=== PATIENT | female | born 1960 | race Caucasian/White ===

== ENCOUNTER 2024-03-26 21:45 | Inpatient (IN) | payer MEDICARE, OTHER ==
[~2024-03-26] VITALS: Ht 162.6 cm; Wt 59.0 kg
[2024-03-26] MEDS ORDERED: OLANZAPINE 10 MG VIAL IM ONE (22:27)
[2024-03-26] MEDS ORDERED: LORAZEPAM INJ 2 MG/ML VIAL ONE (22:28)
[2024-03-26 22:30] LABS: EOSINOPHILS # (AUTO) 0.1 K/uL (0.0-0.7); LYMPHOCYTES # (AUTO) 1.2 K/uL (0.8-4.8); LYMPHOCYTES % (AUTO) 19.5 % (20.0-44.0); MEAN CORPUSCULAR VOLUME 89 fL (82-100); MONOCYTES # (AUTO) 0.4 K/uL (0.1-1.30)
[2024-03-26] MEDS: OLANZAPINE 10 MG VIAL IM ONE (22:34)
[2024-03-26] MEDS: LORAZEPAM INJ 2 MG/ML VIAL IM ONE (22:34)
[2024-03-26 22:35] LABS: BASOPHILS % (AUTO) 0.8 % (0.0-2.0); EOSINOPHILS % (AUTO) 1.5 % (0.0-6.0); HEMATOCRIT 46 % (33-45); MEAN CORPUSCULAR HEMOGLOBIN 31 PG (26.0-33.0); MEAN CORPUSCULAR HGB CONC 35 g/dl (31.0-36.0); MONOCYTES % (AUTO) 6.6 % (2.0-12.0); NEUTROPHILS # (AUTO) 4.4 K/uL (1.8-8.9); NEUTROPHILS % (AUTO) 71.6 % (43.0-81.0); PLATELET COUNT (AUTO) 102 K/uL (150-450); RED BLOOD CELL COUNT(AUTO) 5.17 MIL/uL (4.0-5.2); RED CELL DISTRIBUTION WIDTH 13.1 % (11.5-15.0); WHITE BLOOD COUNT (AUTO) 6.2 K/uL (4.3-11.0)
[2024-03-26 22:36] VITALS: O2SAT 98
[2024-03-26 22:36] LABS: ALANINE AMINOTRANSFERASE 40 U/L (12-78); ALKALINE PHOSPHATASE 113 U/L (46-116); ASPARTATE AMINOTRANSFERASE 17 U/L (15-37); BILIRUBIN,DIRECT 0.2 mg/dL (0.0-0.2); BILIRUBIN,TOTAL 0.9 mg/dL (0.2-1.0); CALCIUM, SERUM 8.6 mg/dL (8.5-10.1); CARBON DIOXIDE 24 mmol/L (21-32); CHLORIDE 109 mmol/L (98-107); CREATININE 0.8 mg/dL (0.6-1.3); GLUCOSE 115 mg/dL (74-106); POTASSIUM 3.5 mmol/L (3.5-5.1); SODIUM SERUM 143 mmol/L (136-145); TOTAL PROTEIN, SERUM 7.2 g/dL (6.4-8.2); UREA NITROGEN, BLOOD 17 mg/dL (7-18)
[2024-03-26 22:39] LABS: ACETAMINOPHEN 0 ug/ml (10-30); ALCOHOL, BLOOD < 3 mg/dL (0-10); SALICYLATE 1.2 mg/dL (2.8-20.0)
[2024-03-27] MEDS ORDERED: CEPH500C2 PO (00:53)
[2024-03-27] MEDS ORDERED: ALBU8.5H8 INH (00:55)
[2024-03-27] MEDS ORDERED: ARIP5TAB10 PO (00:57)
[2024-03-27] MEDS ORDERED: AMIT100T2 PO (00:57)
[2024-03-27] MEDS ORDERED: ASCO-352 PO (00:59)
[2024-03-27] MEDS ORDERED: BACL10TA PO (00:59)
[2024-03-27] MEDS ORDERED: MAGNESIUM HYDROXIDE 30 ML UDC PO PRN (01:00)
[2024-03-27] MEDS ORDERED: ACETAMINOPHEN 325 MG TABLET PO PRN (01:00)
[2024-03-27] MEDS ORDERED: DOCU100C36 PO (01:00)
[2024-03-27] MEDS ORDERED: FLUT1BLS IH (01:01)
[2024-03-27] MEDS ORDERED: HYDR4TAB4 PO (01:02)
[2024-03-27] MEDS ORDERED: LEVO25TA7 PO (01:03)
[2024-03-27] MEDS ORDERED: ONDA4TAB11 PO (01:04)
[2024-03-27] MEDS ORDERED: MONT10TA22 PO (01:04)
[2024-03-27] MEDS ORDERED: PANT40TA49 PO (01:05)
[2024-03-27] MEDS: BLOOD SUGAR DIAGNOSTIC 1 EACH STRIP IN ONE (01:56)
[2024-03-27] MEDS: LORAZEPAM 0.5 MG TABLET PO PRN (04:58)
[2024-03-27] MEDS ORDERED: ALBUTEROL SULFATE 8 GM HFA.AER.AD IH PRN (05:00)
[2024-03-27] MEDS ORDERED: HYDROMORPHONE HCL 2 MG TABLET PO PRN (05:00)
[2024-03-27] MEDS ORDERED: ALBUTEROL FS 2.5 MG/3 ML VIAL.NEB NEB PRN (05:30)
[2024-03-27] MEDS: PANTOPRAZOLE 40 MG TABLET.DR PO SCH (07:55)
[2024-03-27] MEDS: LEVOTHYROXINE SODIUM 25 MCG TABLET PO SCH (07:55)
[2024-03-27 08:00] VITALS: BP_SYST 101; BP_SYST 112; BP_DIAS 69; BP_DIAS 84; TEMP 98.5; TEMP 98.8; O2SAT 96; O2SAT 98
[2024-03-27] MEDS: ENSURE ENLIVE CHOC 237 ML CAN PO SCH (08:34)
[2024-03-27] MEDS: BACLOFEN (10 MG) 10 MG TABLET PO SCH (10:30)
[2024-03-27] MEDS: FLUTICASONE/VILANTEROL 1 EACH BLST.W.DEV IH SCH (10:30)
[2024-03-27] MEDS: CEPHALEXIN MONOHYDRATE 500 MG CAPSULE PO SCH (10:30)
[2024-03-27] MEDS: MAG HYDROX/AL HYDROX/SIMETH 30 ML UDC PO PRN (12:01)
[2024-03-27] MEDS: OLANZAPINE 2.5 MG TABLET PO SCH (14:27)
[2024-03-27 14:45] LABS: BASOPHILS # (AUTO) 0.1 K/uL (0.0-0.2); EOSINOPHILS # (AUTO) 0.1 K/uL (0.0-0.7); EOSINOPHILS % (AUTO) 0.8 % (0.0-6.0); HEMATOCRIT 44 % (33-45); HEMOGLOBIN 15.3 g/dL (11.5-14.8); LYMPHOCYTES # (AUTO) 1.1 K/uL (0.8-4.8); LYMPHOCYTES % (AUTO) 15.5 % (20.0-44.0); MEAN CORPUSCULAR HEMOGLOBIN 31 PG (26.0-33.0); MEAN CORPUSCULAR HGB CONC 35 g/dl (31.0-36.0); MEAN CORPUSCULAR VOLUME 89 fL (82-100); MONOCYTES # (AUTO) 0.4 K/uL (0.1-1.30); MONOCYTES % (AUTO) 5.9 % (2.0-12.0); NEUTROPHILS # (AUTO) 5.5 K/uL (1.8-8.9); NEUTROPHILS % (AUTO) 76.8 % (43.0-81.0); PLATELET COUNT (AUTO) 117 K/uL (150-450); RED BLOOD CELL COUNT(AUTO) 4.95 MIL/uL (4.0-5.2); RED CELL DISTRIBUTION WIDTH 13.3 % (11.5-15.0); WHITE BLOOD COUNT (AUTO) 7.2 K/uL (4.3-11.0)
[2024-03-27 16:00] VITALS: BP 100/63; TEMP 97.6; O2SAT 100
[2024-03-27] MEDS: MONTELUKAST SODIUM (10MG) 10 MG TABLET PO SCH (18:46)
[2024-03-28 08:00] VITALS: BP 98/68; TEMP 98.6; O2SAT 98
[2024-03-28 16:00] VITALS: BP 98/70; TEMP 98.1; O2SAT 97
[2024-03-29 07:35] LABS: CALCIUM, SERUM 8.8 mg/dL (8.5-10.1); CREATININE 0.8 mg/dL (0.6-1.3); POTASSIUM 4.3 mmol/L (3.5-5.1)
[2024-03-29 07:43] LABS: BASOPHILS % (AUTO) 0.6 % (0.0-2.0); EOSINOPHILS # (AUTO) 0.1 K/uL (0.0-0.7); EOSINOPHILS % (AUTO) 1.1 % (0.0-6.0); HEMATOCRIT 40 % (33-45); HEMOGLOBIN 14.1 g/dL (11.5-14.8); LYMPHOCYTES # (AUTO) 0.9 K/uL (0.8-4.8); LYMPHOCYTES % (AUTO) 20.9 % (20.0-44.0); MEAN CORPUSCULAR HEMOGLOBIN 31 PG (26.0-33.0); MEAN CORPUSCULAR HGB CONC 35 g/dl (31.0-36.0); MEAN CORPUSCULAR VOLUME 89 fL (82-100); MONOCYTES # (AUTO) 0.2 K/uL (0.1-1.30); MONOCYTES % (AUTO) 5.1 % (2.0-12.0); NEUTROPHILS # (AUTO) 3.2 K/uL (1.8-8.9); NEUTROPHILS % (AUTO) 72.3 % (43.0-81.0); PLATELET COUNT (AUTO) 89 K/uL (150-450); WHITE BLOOD COUNT (AUTO) 4.5 K/uL (4.3-11.0)
[2024-03-29 08:00] VITALS: BP 153/53; TEMP 97.9; O2SAT 95
[2024-03-29 08:47] LABS: BAND % (MANUAL) 1 % (0.0-5.0); EOSINOPHILS % (MANUAL) 1 % (0-4); LYMPHOCYTES % (MANUAL) 18 % (16-48); MONOCYTES % (MANUAL) 7 % (0-11.0); NEUTROPHILS % (MANUAL) 73 (42-76); PLATELET ESTIMATE DECREASED
[2024-03-29 16:00] VITALS: BP 106/63; TEMP 98.2; O2SAT 98
[2024-03-29 20:49] VITALS: BP 106/57; TEMP 98.3; O2SAT 98
[2024-03-29] MEDS: TEMAZEPAM 7.5 MG CAPSULE PO PRN (21:32)
[2024-03-30 08:00] VITALS: BP 110/53; TEMP 98.2; O2SAT 98
[2024-03-30 16:00] VITALS: BP 115/63; TEMP 97.9; O2SAT 100
[2024-03-30 20:21] VITALS: BP_SYST 109; BP_SYST 119; BP_DIAS 48; BP_DIAS 53; TEMP 97.9; O2SAT 96; O2SAT 98
[2024-03-30] MEDS: OLANZAPINE 2.5 MG TABLET PO SCH (21:19)
[2024-03-31 08:00] VITALS: BP 126/62; TEMP 97.7; O2SAT 98
[2024-03-31 15:56] LABS: CALCIUM, SERUM 7.9 mg/dL (8.5-10.1); CREATININE 0.8 mg/dL (0.6-1.3); POTASSIUM 4.1 mmol/L (3.5-5.1)
[2024-03-31 16:00] VITALS: BP 130/71; TEMP 98.6; O2SAT 98
[2024-03-31 16:21] LABS: THYROID STIMULATING HORMONE 2.005 uIU/mL (0.358-3.74)
[2024-03-31 16:56] LABS: C-REACTIVE PROTEIN < 0.20 mg/dL (0.0-0.30)
[2024-03-31 17:40] LABS: RHEUMATOID FACTOR SCREEN NEGATIVE (NEGATIVE)
[2024-03-31] MEDS: OLANZAPINE 5 MG TABLET PO SCH (21:16)
[2024-03-31 21:25] VITALS: BP 121/61; TEMP 97.7; O2SAT 98
[2024-04-01 07:07] LABS: IMMUNOGLOBULIN A, SERUM 54 mg/dL (87-352); IMMUNOGLOBULIN G, SERUM 704 mg/dL (586-1602); IMMUNOGLOBULIN M, SERUM 89 mg/dL (26-217)
[2024-04-01 08:00] VITALS: BP 100/72; TEMP 97.9; O2SAT 99
[2024-04-01 08:11] LABS: FOLIC ACID 5.4 ng/mL (>3.0)
[2024-04-01 08:33] LABS: BASOPHILS # (AUTO) 0.1 K/uL (0.0-0.2); EOSINOPHILS # (AUTO) 0.1 K/uL (0.0-0.7); EOSINOPHILS % (AUTO) 1.8 % (0.0-6.0); HEMATOCRIT 41 % (33-45); LYMPHOCYTES # (AUTO) 1.1 K/uL (0.8-4.8); MEAN CORPUSCULAR HEMOGLOBIN 31 PG (26.0-33.0); MEAN CORPUSCULAR HGB CONC 35 g/dl (31.0-36.0); MEAN CORPUSCULAR VOLUME 90 fL (82-100); MONOCYTES # (AUTO) 0.2 K/uL (0.1-1.30); MONOCYTES % (AUTO) 4.3 % (2.0-12.0); NEUTROPHILS % (AUTO) 67.9 % (43.0-81.0); PLATELET COUNT (AUTO) 84 K/uL (150-450); RED BLOOD CELL COUNT(AUTO) 4.53 MIL/uL (4.0-5.2); RED CELL DISTRIBUTION WIDTH 13.1 % (11.5-15.0); WHITE BLOOD COUNT (AUTO) 4.5 K/uL (4.3-11.0)
[2024-04-01 11:08] LABS: HEPATITIS B SURFACE AB Reactive (.)
[2024-04-01 12:00] LABS: EOSINOPHILS % (MANUAL) 2 % (0-4); LYMPHOCYTES % (MANUAL) 25 % (16-48); MONOCYTES % (MANUAL) 5 % (0-11.0); NEUTROPHILS % (MANUAL) 68 (42-76); PLATELET ESTIMATE DECREASED
[2024-04-01 12:01] LABS: OVALOCYTES 1+
[2024-04-01 12:09] LABS: FREE KAPPA LT CHAINS SERUM 9.6 mg/L (3.3-19.4); FREE LAMBDA LT CHAIN SERUM 7.7 mg/L (5.7-26.3); KAPPA/LAMBDA RATIO SERUM 1.25 (0.26-1.65)
[2024-04-01 13:11] LABS: *SPE A/G RATIO 1.5 (0.7-1.7); *SPE ALBUMIN 3.4 g/dL (2.9-4.4); *SPE ALPHA-1-GLOBULIN 0.2 g/dL (0.0-0.4); *SPE ALPHA-2-GLOBULIN 0.5 g/dL (0.4-1.0); *SPE BETA GLOBULIN 0.8 g/dL (0.7-1.3); *SPE GLOBULIN, TOTAL 2.3 g/dL (2.2-3.9); *SPE M-SPIKE Not Observed g/dL (Not Observed); *SPE PROTEIN TOTAL 5.7 g/dL (6.0-8.5); *SPEGAMMA GLOBULIN 0.8 g/dL (0.4-1.8)
[2024-04-01 16:00] VITALS: BP 125/54; TEMP 97.9; O2SAT 98
[2024-04-01 20:59] VITALS: BP 117/69; TEMP 97.7; O2SAT 95
[2024-04-02 08:00] VITALS: BP 111/64; TEMP 98.1; O2SAT 99
[2024-04-02 16:49] VITALS: BP 118/58; TEMP 98; O2SAT 95
[2024-04-02 20:00] VITALS: BP 117/62; TEMP 98.2; O2SAT 98
[2024-04-03 08:00] VITALS: BP 127/67; TEMP 97.7; O2SAT 97
[2024-04-03 16:00] VITALS: BP 118/60; TEMP 98; O2SAT 97
[2024-04-03 20:00] VITALS: BP 142/86; TEMP 98.3; O2SAT 95
[2024-04-04 08:00] VITALS: BP 114/71; TEMP 98.6; O2SAT 98
[2024-04-04 16:00] VITALS: BP 122/62; TEMP 98; O2SAT 99
[2024-04-04 20:00] VITALS: BP 119/75; TEMP 98.1; O2SAT 97
[2024-04-05 08:00] VITALS: BP 136/84; TEMP 98; O2SAT 97
[2024-04-05 16:00] VITALS: BP 128/78; TEMP 98; O2SAT 98
[2024-04-05 20:00] VITALS: BP 120/59; TEMP 98.2; O2SAT 97
[2024-04-06 08:00] VITALS: BP 124/60; TEMP 98.6; O2SAT 99
[2024-04-06 08:14] LABS: BASOPHILS % (AUTO) 0.8 % (0.0-2.0); EOSINOPHILS # (AUTO) 0.1 K/uL (0.0-0.7); EOSINOPHILS % (AUTO) 1.5 % (0.0-6.0); HEMATOCRIT 39 % (33-45); HEMOGLOBIN 13.4 g/dL (11.5-14.8); LYMPHOCYTES # (AUTO) 0.6 K/uL (0.8-4.8); LYMPHOCYTES % (AUTO) 17.9 % (20.0-44.0); MEAN CORPUSCULAR HEMOGLOBIN 31 PG (26.0-33.0); MEAN CORPUSCULAR HGB CONC 35 g/dl (31.0-36.0); MEAN CORPUSCULAR VOLUME 90 fL (82-100); MONOCYTES # (AUTO) 0.2 K/uL (0.1-1.30); MONOCYTES % (AUTO) 5.2 % (2.0-12.0); NEUTROPHILS # (AUTO) 2.6 K/uL (1.8-8.9); NEUTROPHILS % (AUTO) 74.6 % (43.0-81.0); PLATELET COUNT (AUTO) 79 K/uL (150-450); RED CELL DISTRIBUTION WIDTH 13.7 % (11.5-15.0); WHITE BLOOD COUNT (AUTO) 3.5 K/uL (4.3-11.0)
[2024-04-06 10:22] LABS: BASOPHILS % (MANUAL) 0 % (0.0-2.0); EOSINOPHILS % (MANUAL) 0 % (0-4); LYMPHOCYTES % (MANUAL) 18 % (16-48); MONOCYTES % (MANUAL) 4 % (0-11.0); NEUTROPHILS % (MANUAL) 78 (42-76); PLATELET ESTIMATE DECREASED
[2024-04-06] MEDS: OLANZAPINE 2.5 MG TABLET PO SCH (12:07)
[2024-04-06 16:00] VITALS: BP 149/73; TEMP 98.2; O2SAT 96
[2024-04-06 20:56] VITALS: BP 116/54; TEMP 98.1; O2SAT 99
[2024-04-06] MEDS: OLANZAPINE 5 MG TABLET PO SCH (21:04)
[2024-04-07 08:00] VITALS: BP 113/52; TEMP 97.8; O2SAT 97
== END 2024-04-07 12:33 | DRG 885 ==
LOC: ER 21:53 → GPS 23:55
PROVIDERS: ADMIT Nurse Practitioner Psychiatric/Mental Health; ATTEND Internal Medicine
DX: F25.9 Schizoaffective disorder, unspecified (principal); F29 Unspecified psychosis not due to a substance or known physiological condition; R41.9 Unspecified symptoms and signs involving cognitive functions and awareness; Z73.6 Limitation of activities due to disability; R53.1 Weakness; R27.8 Other lack of coordination; Z91.81 History of falling; F41.9 Anxiety disorder, unspecified; F32.A Depression, unspecified; J44.9 Chronic obstructive pulmonary disease, unspecified; E03.9 Hypothyroidism, unspecified; D69.6 Thrombocytopenia, unspecified; Z78.1 Physical restraint status; Z81.8 Family history of other mental and behavioral disorders; R16.1 Splenomegaly, not elsewhere classified; Z91.148 Patient's other noncompliance with medication regimen for other reason
CPT/HCPCS: 36415; 76700-TC; 80048-TC; 80061-TC; 80076-TC; 82607-TC; 82784; 82962-TC; 84155; 84165; 84443-TC; 85025-TC; 86140-TC; 86225; 86235; 86334; 86431-TC; 86706; 86803; 87081-TC; 87340; 97110-TC; 97116-TC; 97530-TC; G0480; J2060; J3490